=== PATIENT | male | born 1965 | race Caucasian/White ===

== ENCOUNTER 2024-02-18 08:21 | Outpatient (AMB) | payer OTHER, SELFPAY ==
[2024-02-18 08:24] VITALS: BP 142/88; PULSE 75; TEMP 36.7; O2SAT 99; BMI 23.9
--- NOTE | 2024-02-18 08:24 | AM.OFFWIN_ITS ---
Intake Vital Signs 02/18/24 08:24 Height 5 ft 3 in Weight 135 lb 2 oz BMI 23.9 BP 142/88 H Blood Pressure Location Rt brachial Position Sitting Pulse 75 Pulse Source Pulse Oximeter Temp 98.1 F Temp Source Oral Pulse Oximetry (%) 99 Oxygen Delivery Method Room Air Intake Visit Reasons: EP lower LFT side pain (lobby) Intake Note: Pt presents to the office today for lower left sided abdominal pain that started about 5 days ago without any known injury. Pt states if he moves a certain way he gets pain. Pt denies any other symptoms at this time. Allergies No Known Allergies Allergy (Verified 02/18/24 08:42) Medication List - Last Reconciled 02/18/24 by John Staples MD No Known Home Meds HPI EP lower LFT side pain (lobby) HPI Details 58-year-old male presents to the office for a sick visit. Patient is reporting pain on the left side of his chest more towards the back. Symptoms started 5 days ago and is slowly getting worse. No difficulty with taking a deep breath. Pain is not worse on bending forward or sideways. 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 No shortness of breath PFSH Social History (Updated 02/18/24 @ 08:27 by Michelle Comer [facility]) Alcohol intake: current Alcohol intake frequency: a few times a month Patient Tobacco Use Status: Never used Tobacco Physical Exam Vital Signs: Last Vital Signs Temp 98.1 F 02/18/24 08:24 Pulse 75 02/18/24 08:24 BP 142/88 H 02/18/24 08:24 Pulse Ox 99 02/18/24 08:24 Oxygen Delivery Method Room Air 02/18/24 08:24 BMI result Body Mass Index 23.9 Const General: cooperative and healthy appearing Nutritional Appearance: well nourished Orientation/consciousness: patient oriented x3 Limitations: no limitations HEENT Head: Yes normal to inspection Eyes General: appearance normal, both eyes and all related structures Neck Neck: Yes normal visual inspection Chest Other: Chest: Left 12th rib posteriorly is very tender. No overlying rash or lesions. Resp Effort & Inspection: normal respiratory effort Neuro General: patient oriented x3 Assessment & Plan Assessment & Plan (1) Rib pain: Code(s): R07.81 - Pleurodynia Plan: X-ray images were personally reviewed by me. No fracture or rib lesion seen. Anti inflammatory ordered. Blood work ordered to check inflammatory markers. NFW given. Orders: Orders Erythrocyte Sedimentation Rate Today R07.81 - Pleurodynia C Reactive Protein Today R07.81 - Pleurodynia Liver Panel Today R07.81 - Pleurodynia Basic Metabolic Panel Today R07.81 - Pleurodynia Thyroid Stimulating Hormone Today R07.81 - Pleurodynia XR ribs LT min 3V w CXR1V Today R07.81 - Pleurodynia Complete Blood Count no Diff Today R07.81 - Pleurodynia Coding Level of Care Code New Pt Level 4 (38180) Diagnoses Rib pain R07.81
== END 2024-02-18 10:26 | disposition home or self-care (01) ==
PROVIDERS: Visit Provider Internal Medicine
DX: R07.81 Pleurodynia (principal)
CPT/HCPCS: 99204

== ENCOUNTER 2024-02-18 08:41 | Outpatient (REF) | payer OTHER, SELFPAY ==
--- NOTE | ~2024-02-18 | XR_ITS ---
EXAMINATION: XR RIBS, LEFT CLINICAL INFORMATION: Pleurodynia COMPARISON: None available. TECHNIQUE: 3 views of the left ribs were obtained. FINDINGS: Lungs are clear. No consolidation, pneumothorax, or pleural effusion. The cardiomediastinal silhouette and pulmonary vasculature are normal. Osseous structures are unremarkable. Ribs are intact. No fractures are identified. XR/XR ribs LT min 3V w CXR1V IMPRESSION: Unremarkable examination.
[2024-02-18 10:24] LABS: Hematocrit 47.2 % (42.0-52.0); Hemoglobin 15.7 g/dl (14.0-18.0); Mean Corpuscular HGB Conc 33.3 g/dl (31.0-36.0); Mean Corpuscular Volume 93.3 fL (80.0-98.0); Mean Platelet Volume 9.9 fL (9.4-12.4); Platelet Count 338 X10*3/uL (160-400); Red Blood Count 5.06 X10*6/uL (4.60-5.80); Red Cell Distribution Width 13.9 % (11.0-16.0); White Blood Count 8.6 X10*3/uL (4.8-10.8)
[2024-02-18 11:26] LABS: Erythrocyte Sedimentation Rate 12 MM/HR (0-15)
[2024-02-18 11:28] LABS: Alanine Aminotransferase 65 U/L (0-40); Albumin Level 4.2 g/dL (3.5-5.0); Alkaline Phosphatase 107 U/L (39-117); Anion Gap 13 (12-20); Aspartate Amino Transferase 30 U/L (5-37); Bilirubin Direct 0.1 mg/dL (0.0-0.5); Bilirubin Total 0.3 mg/dL (0.0-1.0); Blood Urea Nitrogen 14 mg/dL (9-16); C Reactive Protein 0.44 mg/dL (< or = 0.50); Calcium 9.1 mg/dL (8.4-10.2); Carbon Dioxide 29 mmol/L (22-29); Chloride 103 mmol/L (96-108); Estimated Glomerular Filt Rate > 60; Glucose Random 114 mg/dL (60-115); Potassium 4.6 mmol/L (3.3-5.1); Sodium 140 mmol/L (135-145); Thyroid Stimulating Hormone 3.09 uIU/mL (0.32-4.0); Total Protein 7.5 g/dL (6.5-8.0)
== END 2024-02-18 08:42 | disposition home or self-care (01) ==
LOC: HO.HMGCX 08:41
PROVIDERS: Visit Provider Internal Medicine
DX: R07.81 Pleurodynia (principal)
CPT/HCPCS: 36415; 71101; 80048; 80076; 84443; 85027; 85652; 86140